=== PATIENT | female | born 1930 | race Caucasian/White ===

== ENCOUNTER 2016-10-21 06:07 | Observation (INO) | payer OTHER ==
[~2016-10-21] VITALS: Ht 154.9 cm; Wt 74.4 kg
[2016-10-21] VITALS (16 sets, daily range): BP systolic 130–190; BP diastolic 61–74
[~2016-10-21 06:07] MED LIST: AMLO10TA4 PO; ASPI81TA9 PO; ATOR20TA PO; CHOL10007 PO; CYCL10TA2 PO; FAMO-63 PO; HYDR12.53 PO; LABE100T3 PO; LAMO100T PO; LAMO25TA PO; LEVO100T5 PO; LISI-334 PO; OMEG-85 PO; OMEG1CAP6 PO; OMEP20CA9 PO; TRAM50TA PO; ZOLP5TAB PO
[2016-10-21 06:59] LABS: HEMATOCRIT 41.3 % (36.0-47.0); HEMOGLOBIN 13.6 g/dL (12.0-15.5); RED BLOOD COUNT 4.32 x10^6/uL (3.50-5.40); RED CELL DISTRIBUTION WIDTH 13.6 % (11.5-14.5)
[2016-10-21] MEDS ORDERED: CEFAZOLIN SODIUM 1 GM in IV NORMAL SALINE 50ML 50 ML IV ONE ×2 (07:00→14:30)
[2016-10-21] MEDS ORDERED: BACITRACIN 50,000 UNIT in IV NORMAL SALINE 250ML 250 ML IRR ONE (07:00)
[2016-10-21 07:04] LABS: CALCIUM 9.4 mg/dL (8.5-10.1); GFR 52.3; POTASSIUM 3.8 mmol/L (3.5-5.1)
[2016-10-21 07:11] LABS: INR 1.2 (0.8-1.1); PROTHROMBIN TIME PATIENT 14.8 SEC (11.7-14.0)
--- NOTE | 2016-10-21 07:30 | EKG ---
[facility] [address] [place] [address] Test Date: 2016-10-21 Test Time: 07:26:50 Pat Name: EARL ORNELAS Department: Room: Gender: F Parachute Folder: CHRISTOPHER : 1930 Requested By: TATIANA KEATING Order Number: [id number] Reading MD: Measurements Intervals [place] Rate: 86 P: 43 NE: 236 QRS: -12 QRSD: 78 T: 37 QT: 336 QTc: 405 Interpretive Statements SINUS RHYTHM PROLONGED NE INTERVAL LEFTWARD AXIS ABNORMAL ECG RI6.01 Compared to ECG 02/15/2016 09:02:05 Left-axis deviation now present
[2016-10-21] MEDS ORDERED: LIDOCAINE 2%/EPI 1:100,000 20 ML VIAL. ONE (08:02)
[2016-10-21] MEDS ORDERED: MIDAZOLAM HCL 2 MG/2 ML VIAL. ONE ×2 (08:09→08:32)
[2016-10-21] MEDS ORDERED: FENTANYL PF 100 MCG/2 ML VIAL. ONE ×2 (08:09→08:33)
[2016-10-21] MEDS ORDERED: MIDAZOLAM HCL 2 MG/2 ML VIAL. IV ONE ×2 (08:15→08:45)
[2016-10-21] MEDS ORDERED: FENTANYL PF 100 MCG/2 ML VIAL. IV ONE ×2 (08:15→08:45)
[2016-10-21] MEDS ORDERED: LIDOCAINE 2%/EPI 1:100,000 20 ML VIAL. IJ ONE (08:15)
[2016-10-21] MEDS ORDERED: IODIXANOL 320 MG/ML 100 ML VIAL. ONE (08:37)
[2016-10-21] MEDS ORDERED: IODIXANOL 320 MG/ML 100 ML VIAL. IART ONE (08:45)
[2016-10-21] MEDS ORDERED: NO ANTICOAGULANT THERAPY. MC PRN (10:15)
[2016-10-21] MEDS ORDERED: ONDANSETRON PF 4 MG/2 ML VIAL. IV PRN (10:15)
--- NOTE | 2016-10-21 11:00 | RAD ---
Portable chest, 10/21/2016: History: Check pacemaker Comparison is made to a study from 02/14/2016. A left-sided transvenous pacemaker is now in place with the tip of one lead projected over the right atrium and the tip of the other lead projected over the inferior aspect of the right ventricle. The heart is probably within normal limits in size. There is calcific plaquing of the aorta. The pulmonary vascularity is normal. No pulmonary infiltrates are seen. There is no evidence of pleural fluid or pneumothorax. IMPRESSION: 1. Interval insertion of a left-sided transvenous pacemaker. 2. No acute cardiopulmonary abnormality is detected.
--- NOTE | 2016-10-21 13:50 | CARD ---
APPROVED REPORT HISTORY The Patient is a 86 year-old female with a history of SSS, near syncope and 3.5 second pauses PROCEDURES Insertion Dual Chamber Pacemaker 30 mL of 2% lidocaine was infiltrated into the skin and subcutaneous tissues for local anesthesia. A n incision was made over the left infraclavicular fossa and using blunt dissection and cautery a pock et was created. Venous access was obtained in the left subclavian vein after limited contrast venogr aphy and two 6 Fr sheaths were inserted. Subsequently, a [employer] Trevor bipolar active fixation right ventricular lead model 2088TC/52, [id number] was advanced under fluoroscopic guidance and the tip was positioned in the right ventricular apex. Following this, a St. Trevor bipolar active fixation right atrial lead model 2088TC/46, SN [id number] wa s placed in the right atrial appendage/lateral wall confluence under fluoroscopy guidance. The leads were secured into place and were attached to a [employer] Trevor dual-chamber permanent pacemaker generator mega [id number], [id number]. This was placed in the pocket that was subsequently closed in 3 layers. Hem ostasis was secured. At the end of procedure, the right ventricular lead showed sensing amplitude of 12mV, impedance of 71 0 ohms and a threshold of 0.75volts. The right atrial lead showed a sensing amplitude of 2.3 millivo lts, impedance of 400ohms and a threshold of 0.75 volts. Patient tolerated the procedure well. There were no immediate complications. CONCLUSION Successful insertion of a dual chamber pacemaker for SSS.
[2016-10-21] MEDS ORDERED: ZOLPIDEM 5 MG TABLET. PO PRN (16:15)
[2016-10-21] MEDS ORDERED: CYCL10TA2 PO (16:18)
[2016-10-21] MEDS: TRAMADOL 50 MG TABLET. PO PRN (17:36)
[2016-10-21] MEDS ORDERED: ATORVASTATIN CALCIUM 20 MG TABLET PO SCH (21:00)
[2016-10-21] MEDS ORDERED: FAMOTIDINE 20 MG TABLET. PO SCH (21:00)
[2016-10-21] MEDS: CYCLOBENZAPRINE 10 MG TABLET. PO SCH (21:07)
[2016-10-21] MEDS: lamoTRIgine 100 MG TABLET. PO SCH (21:07)
--- NOTE | 2016-10-22 00:27 | ACF ---
Admission Forms Criteria CARDIOLOGY GRG Clinical Indications for Admission to Inpatient Care ( Place 'X' for any and all applicable criteria): Hospital admission is needed for appropriate care of the patient because of ANY ONE of the following (1): [ ] I. Hemodynamic instability as indicated by ALL of the following (1)(2)(3) (4)(5) [ ]a) Vital signs or other findings not as expected for chronic patient condition or baseline [ ]b) Instability indicated by ANY ONE of the following: [ ]i) Hypotension [ ]ii) Symptomatic Tachycardia unresponsive to treatment ( e.g., analgesia, fluids, sedation as indicated) [ ]iii) Inadequate perfusion indicated by ANY ONE of the following: [ ] 1) Lactic acidosis (> 2 mmol/L) [ ] 2) New abnormal capillary refill (> 3 seconds) [ ] 3) Reduced urine output [ ] 4) New altered mental status [ ]iv) Orthostatic vital sign changes unresponsive to treatment (e.g., fluids) [ ]v) IV inotropic or vasopressor medication required to maintain adequate blood pressure or perfusion [ ] II. Severe heart failure as indicated by ANY ONE of the following(17)(18) [ ]a) Respiratory distress [ ]b) Hypotension [ ]c) Anasarca (refractory to outpatient therapy) [ ]d) Cardiac arrhythmias of immediate concern [ ]e) Myocardial ischemia [ ] III. Cardiac arrhythmias or findings of immediate concern indicated by ANY ONE of the following (19)(20): [ ] a) Heart rhythms that are inherently dangerous or unstable indicated by ANY ONE of the following (21)(22)(23): [ ] i) Resuscitated ventricular fibrillation or cardiac arrest [ ] ii) Ventricular escape rhythm [ ] iii) Sustained ventricular tachycardia (30 seconds or more of ventricular rhythm at greater than 100 beats per minute) [ ] iv) Nonsustained ventricular tachycardia and ANY ONE of the following: [ ] 1) Suspected cardiac ischemia as cause or consequence of ventricular tachycardia [ ] 2) In setting of acute myocarditis [ ] b) Unstable cardiac conduction defects indicated by ANY ONE of the following(23)(24)(25) [ ] i) Type II second-degree atrioventricular block [ ]ii) Third-degree atrioventricular block [ ]iii) New-onset left bundle branch block with suspected myocardial ischemia [ ]c) Any heart rhythm and ANY ONE of the following (21)(22)(26)(27) (28) [ ] i) Continuous long-term ECG monitoring needed (e.g., initiation of drug requiring monitoring for more than 24 hours) [ ] ii) Patient has automatic implanted cardioverter defibrillator that is repeatedly firing, malfunctioning, or in need of immediate adjustment of settings beyond the scope of ambulatory or observation care [ ]d) Heart rhythms of concern due to ANY ONE of the following: [ ] i) Hypotension [ ] ii) Respiratory distress [ ] iii) Association with other significant symptoms (e.g., bradycardia with syncope or ongoing dizziness, supraventricular tachycardia with chest pain (14)(15)(17) [ ] IV. Monitoring for cardiac contusion beyond the scope of observation care needed [A](30)(31)(32) [ ] V. Surgical or device complication (e.g., valve replacement complication , pacemaker dysfunction) (35)(41)(44)(45)(46) [ ] . Inpatient palliative care needed. [B](49) Also use Inpatient Palliative Care Criteria [ ] VII. Nonbacterial thrombotic (marantic) endocarditis (36)(43)(47)(48) [X] VIII. Cardiology condition, symptom, or finding for which emergency and observation care has failed or are not considered appropriate. [ ] IX. Acute valvular disease requiring inpatient as indicated by ANY ONE of the following (41) [ ]a) Acute valvular regurgitation (42) [ ]b) Noninfectious valvulitis (43) [ ]c) Obstructive valve thrombosis [ ]d) Paravalvular leak [ ]e) Other significant valvular disorder remaining after emergency or observation level of care (as appropriate) [ ]X. Pericardial disease requiring inpatient treatment as indicated by ANY ONE of the following (33)(34)(35)(36)(37) [ ]a) Suspected tamponade (38)(39)(40) [ ]b) Hemopericardium [ ]c) Other significant pericardial disorder remaining after emergency or observation level of care (as appropriate) [ ] XI. Cardiac ischemia beyond scope of emergency and observation care. [ ] XII. Hypertension requiring inpatient treatment as indicated by ANY ONE of the following (6)(7)(8) [ ]a) SBP greater than 220 mm Hg or DBP greater than 120 mmHg despite treatment [ ]b) SBP greater than 140 mm Hg or DBP greater than 100 mm Hg with evidence of acute end organ damage as indicated by ANY ONE of the following [ ] i) Encephalopathy [ ] ii) Acute renal failure as indicated by new onset of ANY ONE of the following (9)(10)(11)(12)(13) [ ]1) 3-fold rise in serum creatinine from baseline [ ]2) Serum creatinine greater than 4 mg/dL ( 354 micromoles/L) with acute rise greater than 0.5 mg/dL (44.2 micromoles/L) [ ]3) Reduction of more than 75% in estimated glomerular filtration rate from baseline [ ]4) Estimated glomerular filtration rate less than 35 mL/min/1.73m2 (0.59 mL/sec/1.73m2) in child up to 18 years of age [ ]5) Cessation of urine output indicated by ALL of the following [ ]A. Adequate volume status [ ]B. Inadequate urine output as indicated by ANY ONE of the following [ ]a. Urine output less than 0.3 mL/kg/hr for 24 hours [ ]b. Anuria (urine output less than 0.1 mL/kg/hr) for 12 hours [ ] iii) Aortic dissection [ ] iv) Myocardial Ischemia [ ] v) Left ventricular heart failure [ ]vi) Retinal Hemorrhage [ ]vii) Other significant finding [ ]c) Hypertension in child requiring inpatient treatment as indicated by ALL of the following(14)(15)(16) [ ] i) Outpatient treatment not effective, not available, or not appropriate [ ]ii) SBP or DBP greater than 95th percentile for age [ ]iii) Evidence of acute end organ damage as indicated by ANY ONE of the following [ ]1) Altered mental status [ ]2) Acute renal failure as indicated by new onset of ANY ONE of the following(9)(10)(11)(12)(13) [ ]A. 3-fold rise in serum creatinine from baseline [ ]B. Serum creatinine greater than 4 mg/dL (354 micromoles/L) with acute rise greater than 0.5 mg/dL (44.2 micromoles/L) [ ]C. Reduction of more than 75% in estimated glomerular filtration rate from baseline [ ]D. Estimated glomerular filtration rate less than 35 mL/min/1.73m2 (0.59 mL/sec/1.73m2) in child up to 18 years of age [ ]E. Cessation of urine output indicated by ALL of the following [ ]a. Adequate volume status [ ]b. Inadequate urine output as indicated by ANY ONE of the following [ ]i) Urine output less than 0.3 mL/kg/hr for 24 hours [ ]ii) Anuria ( urine output less than 0.1 mL/kg/hr) for 12 hours [ ]3) Severe headache [ ]4) Visual disturbance [ ]5) Retinal hemorrhage [ ]6) Other significant finding [ ]XIII. Complications of transplanted heart indicated by ANY ONE of the following(61): [ ]a) Acute graft rejection requiring inpatient management (eg, intravenous immunosuppression)(62)(63) [ ]b) Acute graft heart failure indicated by ANY ONE of the following(64): [ ]i) Hemodynamic instability [ ]ii) Cardiac arrhythmias of immediate concern [ ]iii) Pulmonary edema that is very severe (eg, mechanical ventilation needed, imminent or likely, need for 100% oxygen to keep oxygen saturation above 90%) [ ]iv) Pulmonary edema that is persistent as indicated by ALL of the following: [ ]1) New need for oxygen therapy to keep oxygen saturation above 90% (or increased FiO2 need from baseline) [ ]2) Has not improved sufficiently with emergency department or observation care IV diuretics or other heart failure treatments[E] [ ]v) Altered mental status that is severe or persistent [ ]vi) Increased creatinine (new on laboratory test) with reduction of more than 50% in estimated glomerular filtration rate from baseline [ ]vii) Progressively (ongoing) rising creatinine (known from past laboratory test) with reduction of more than 25% in estimated glomerular filtration rate from baseline [ ]viii) Acute renal failure [ ]ix) Acute peripheral ischemia (eg, examination shows pulseless, cool, mottled, or cyanotic extremity) [ ]x) Pulmonary artery catheter monitoring needed [ ]xi) Other sign or symptom of heart failure requiring inpatient treatment (ie, too severe or not responsive to outpatient and observation care treatment) [ ]c) Infection requiring inpatient management (eg, Hemodynamic instability, need for intravenous antimicrobial treatment)(66)(67)(68)(69)(70) [ ]d) Cardiac allograft vasculopathy requiring inpatient management ( eg evidence of cardiac ischemia)(71) [ ]e) Other complication of transplanted heart (eg, stroke, severe pulmonary hypertension, severe valvular dysfunction) requiring inpatient management(72) The original [facility] content created by [facility] has been revised. The portions of the content which have been revised are identified through the use of italic text or in bold, and [facility] has neither reviewed nor approved the modified material. All other unmodified content is copyright [facility] [place]. Please see references footnoted in the original [facility] edition 2016 Admission Criteria Met?: Yes ROSALIND WILKS Oct 22, 2016 00:27
[2016-10-22 03:00] VITALS: BP 162/78
[2016-10-22 07:00] VITALS: BP 159/70
[2016-10-22] MEDS ORDERED: LEVOTHYROXINE 100 MCG TABLET PO SCH (07:00)
--- NOTE | 2016-10-22 08:39 | RAD ---
Indication pacemaker placement. Assess for potential complication. PA and lateral views of the chest are obtained and are compared to a single view examination one day earlier. Heart and pulmonary vessels are within normal limits. Bipolar cardiac pacing device is noted. No complication is seen. No pneumothorax is seen. There is mild compression of thoracic and thoracolumbar vertebral body segments the chronicity of which is uncertain. The patient is mildly kyphotic. IMPRESSION: No acute finding in the chest. Bipolar cardiac pacing device. No complication seen
[2016-10-22] MEDS: CYCLOBENZAPRINE 10 MG TABLET. PO SCH ×2 (08:41→14:35)
[2016-10-22] MEDS: lamoTRIgine 100 MG TABLET. PO SCH (08:41)
[2016-10-22] MEDS: TRAMADOL 50 MG TABLET. PO PRN (08:50)
[2016-10-22] MEDS ORDERED: ASPIRIN ENTERIC COATED 81 MG TABLET.DR. PO SCH (09:00)
[2016-10-22] MEDS ORDERED: LISINOPRIL 20 MG TABLET PO SCH ×2 (09:00)
[2016-10-22] MEDS ORDERED: HYDROCHLOROTHIAZIDE 12.5 MG CAPSULE. PO SCH (09:00)
[2016-10-22] MEDS ORDERED: AMLODIPINE BESYLATE 10 MG TABLET PO SCH (09:00)
--- NOTE | 2016-10-22 09:05 | PDOC3 ---
MICHELLE PANCHAL KAIAWHINA 10/22/16 0905: Discharge Summary Visit Information Date of Admission: Oct 21, 2016 Date of Discharge: Oct 22, 2016 Admitting Diagnosis: SSS Final Diagnosis SSS; S/P PPM Brief Hospital Course Allergies Allergies Coded Allergies Type Severity Reaction Last Updated Verified hydralazine Allergy Severe Shortness of Air 02/16/16 Yes adhesive tape Allergy Intermediate 10/21/16 Yes Vital Signs Vital Signs Date Time Temp Pulse Resp B/P Pulse Ox O2 Delivery O2 Flow Rate FiO2 10/22/16 08:50 Room Air 10/22/16 08:43 72 159/70 10/22/16 07:00 98.1 18 94 98.1 10/21/16 19:45 4.0 Lab Results Laboratory Tests Test 10/21/16 06:45 White Blood Count 8.0x10^3/uL (4.0-11.0) Red Blood Count 4.32x10^6/uL (3.50-5.40) Hemoglobin 13.6g/dL (12.0-15.5) Hematocrit 41.3% (36.0-47.0) Mean Corpuscular Volume 96fL (79-100) Mean Corpuscular Hemoglobin 32pg (25-35) Mean Corpuscular Hemoglobin Concent 33g/dL (31-37) Red Cell Distribution Width 13.6% (11.5-14.5) Platelet Count 305x10^3/uL (140-400) Prothrombin Time 14.8SEC (11.7-14.0) Prothromb Time International Ratio 1.2 (0.8-1.1) Activated Partial Thromboplast Time 34SEC (24-38) Sodium Level 140mmol/L (136-145) Potassium Level 3.8mmol/L (3.5-5.1) Chloride Level 102mmol/L (98-107) Carbon Dioxide Level 31mmol/L (21-32) Anion Gap 7 (6-14) Blood Urea Nitrogen 14mg/dL (7-20) Creatinine 1.0mg/dL (0.6-1.0) Estimated GFR (Cockcroft-Gault) 52.3 Glucose Level 138mg/dL (70-99) Calcium Level 9.4mg/dL (8.5-10.1) Brief Hospital Course This is an 86 yo female who is known for presyncopal episodes. After further testing she was noted with SSS and pt has agreed for PPM placement. Successful insertion of a dual chamber pacemaker ([employer] Trevor). Pt tolerate procedure well without complications. Pt is AOx3, denies any discomfort, lungs are clear to auscultation and ambulatory at her baseline without difficulty. Vital signs have been stable and no significant rhythm ectopies overnight. Left chest surgical incision dry/intact without any significant erythema/swelling. Neurovascular status to LUE intact. Post pacemaker interrogation revealed normal functioning device. Discussed post pacemaker instructions and pt to resume home routine medications. Home today with home health. Discharge Information Condition at Discharge: Stable Follow Up: Weeks (2 week wound check in the office then 3 months follow up with device check) Disposition/Orders: D/C to Home w/ HH Scheduled Amlodipine Besylate (Norvasc) 10 MG PO DAILY (Reported) Aspirin (Aspirin Ec) 1 TAB PO DAILY (Reported) Atorvastatin Calcium (Lipitor) 20 MG PO HS (Reported) Cyclobenzaprine Hcl (Cyclobenzaprine Hcl) 1 TAB PO TID (Reported) Famotidine (Pepcid) 20 MG PO BID (Reported) Hydrochlorothiazide (Hydrochlorothiazide Capsule ) 1 CAP PO DAILY (Reported) Lamotrigine (Lamotrigine) 1 TAB PO BID (Reported) Levothyroxine Sodium (Levothyroxine Sodium) 1 TAB PO DAILY (Reported) Lisinopril (Lisinopril) 1 TAB PO DAILY (Reported) Scheduled PRN Tramadol Hcl (Tramadol Hcl) 1 TAB PO PRN BID PRN PRN PAIN (Reported) Zolpidem Tartrate (Ambien) 5 MG PO HS PRN PRN INSOMNIA (Reported) Discontinued Medications Cholecalciferol (Vitamin D3) (Vitamin D3) 1,000 UNIT PO (Reported) Cyclobenzaprine Hcl (Cyclobenzaprine Hcl) 1 TAB PO PRN Q6HRS PRN PRN MUSCLE SPASMS (Reported) Gordon-3 Fatty Acids/Fish Oil (Fish Oil 1,000 Mg Capsule) 1 EACH PO DAILY ( Reported) Patient Instructions Patient Instructions Must know & what to expect after device implant: 1. Your surgical dressing should be removed prior to discharge from the hospital, but allow the steri- strips to fall off naturally. 2. Activity restrictions: DO NOT raise arm above shoulder level, lift anything heavier than a gallon of milk, and no push or pull motions such as vacuuming/lawn mowing, no swinging motions (golf), etc for 4 weeks. 3. It is OK to use a cell phone or other electronic devices just be sure you do not store it in a breast pocket on the side where the device was placed. 4. Device will be interrogated prior to your discharge from the hospital and then every 3 months for defibrillators and every 6 months for pacemakers. You may be asked to have your device checked remotely from home as well, but this will depend on your particular physicians preference. 5. You may remove the arm immobilizer the day after device placement. Wear the arm immobilizer/splint at night (during sleep times) for 2 week to prevent unintended arm movement that can cause lead dislodgement. 6. Do not drive for one week as the task of driving may lead to unintended arm motion that may cause lead dislodgement. The seatbelt will also rub against the incision site & cause irritation. 7. It is our recommendation that you utilize Tylenol at home for pain control. You need to call our office if you are having uncontrollable pain at the incision site. 8. Keep your incision clean and dry. It is OK to shower. DO NOT submerge in bath, pool, or hot tub, until cleared by your doctor, as this could lead to increase risk of infection.. It is OK to use regular soap just do not scrub the incision site. Water spray from shower should not directly hit the incision. Be sure to blot dry not rub. 9. Inspect your incision daily. If you notice any increased redness, swelling , or drainage, or if you start running a fever, call the office immediately. The number is [phone]. 10. For women, if you need to protect against irritation from the bra straps, you can place a piece of gauze over the incision site for cushion. Please be sure to tape it loosely to allow air to the site & remove the gauze when you remove the bra. 11. Be sure to carry your device identification information card in your wallet/purse at all times. 12. It is OK to go through security at the airport with your device, but be sure to let the TSA know prior to proceeding as the security settings change depending on varying factors. Please do whatever is requested by security at that time. 13. Some of the newer devices may be MRI compatible but, currently, the use of these devices is not widespread, so you likely will not be able to have an MRI. Please clarify this with your physician. If at any time, you feel lightheaded or dizzy/faint, stop what you are doing & lie down immediately. If you are driving, get to the side of the road quickly, turn your car off & call 911 on your cell phone. DO NOT continue to drive as this may cause an accident that seriously injures yourself &/or others. Call the office at [phone] for any questions or concerns. TATIANA KEATING MD 10/22/16 474: Discharge Summary Brief Hospital Course Brief Hospital Course Patient seen and examined. Agree with above nurse practitioner noted. No acute events overnight. This morning her device interrogation and chest x- ray are unremarkable. Left infraclavicular access site is clean, dry and intact. She has some tenderness to palpation. Will provide tramadol as prescription. She was evaluated by physical therapy and recommended to go to a assisted rehabilitation facility but she declined and will go home and she was advised to have close monitoring through her family. Will follow-up in the office for a wound check in 7-10 days. Discharge Information Scheduled Amlodipine Besylate (Norvasc) 10 MG PO DAILY (Reported) Aspirin (Aspirin Ec) 1 TAB PO DAILY (Reported) Atorvastatin Calcium (Lipitor) 20 MG PO HS (Reported) Cyclobenzaprine Hcl (Cyclobenzaprine Hcl) 1 TAB PO TID (Reported) Famotidine (Pepcid) 20 MG PO BID (Reported) Hydrochlorothiazide (Hydrochlorothiazide Capsule ) 1 CAP PO DAILY (Reported) Lamotrigine (Lamotrigine) 1 TAB PO BID (Reported) Levothyroxine Sodium (Levothyroxine Sodium) 1 TAB PO DAILY (Reported) Lisinopril (Lisinopril) 1 TAB PO DAILY (Reported) Scheduled PRN Tramadol Hcl (Tramadol Hcl) 1 TAB PO PRN BID PRN PRN PAIN (Reported) Zolpidem Tartrate (Ambien) 5 MG PO HS PRN PRN INSOMNIA (Reported) Discontinued Medications Cholecalciferol (Vitamin D3) (Vitamin D3) 1,000 UNIT PO (Reported) Cyclobenzaprine Hcl (Cyclobenzaprine Hcl) 1 TAB PO PRN Q6HRS PRN PRN MUSCLE SPASMS (Reported) Gordon-3 Fatty Acids/Fish Oil (Fish Oil 1,000 Mg Capsule) 1 EACH PO DAILY ( Reported) MICHELLE PANCHAL APRN Oct 22, 2016 09:05 TATIANA KEATING MD Oct 22, 2016 18:29
[2016-10-22 11:00] VITALS: BP 155/70
== END 2016-10-22 16:05 | disposition home health service (06) ==
LOC: CCL 06:07 → 2 SOUTH 09:09
PROVIDERS: ADMIT Internal Medicine Cardiovascular Disease; ATTEND Internal Medicine Cardiovascular Disease
DX: I49.5 Sick sinus syndrome (principal); R55 Syncope and collapse
CPT/HCPCS: 33208; 36415; 71010; 71020; 80048; 85027; 85610; 85730; 93005; 96365; 97162; 97166; 97535; C1785; C1892; C1898; G0378; G0379; G8987; G8988; G8989; J0690; J2250; J3010; J3490; J7050; J7030

== ENCOUNTER → 2016-11-04 | Outpatient (CLI) | payer MEDICARE, OTHER ==
[2016-10-22 11:00] VITALS: BP 155/70
--- NOTE | 2016-11-04 16:05 | RAD ---
Exam: PA and lateral chest radiograph History: Evaluate pacemaker placement post fall. Comparison: 10/22/2016. Findings: Cardiomediastinal silhouette is within normal limits for size. Bilateral lung juarez are free of focal infiltrate. No pleural effusion is seen. Aortic atherosclerosis is noted. Dual-lead pacemaker by left approach is seen with one lead projecting at the right atrium and additional lead projecting at the right ventricle. There is mild accentuation of interstitial markings, thought to represent fibrotic change. Mild wedging of multiple thoracic vertebral bodies as well as accentuated thoracic kyphosis is similar to previous study. Compression fracture at the thoracolumbar junction is also unchanged. Impression: 1. No acute cardiopulmonary process. 2. No interval change in appearance of pacemaker.
== END | disposition home or self-care (01) ==
LOC: RAD 10:12
PROVIDERS: ATTEND Internal Medicine Cardiovascular Disease
DX: S32.009G Unspecified fracture of unspecified lumbar vertebra, subsequent encounter for fracture with delayed healing (principal); Z95.0 Presence of cardiac pacemaker; W19.XXXD Unspecified fall, subsequent encounter
CPT/HCPCS: 71020